=== PATIENT | male | born 1935 | race Caucasian/White ===

== ENCOUNTER 2018-03-26 11:12 | Inpatient (IN) | payer MEDICARE, OTHER ==
[~2018-03-26] VITALS: Ht 177.8 cm; Wt 102.8 kg
[~2018-03-26 11:12] MED LIST: ASPI-1012 PO; ATOR10TA69 PO; CARV12.511 PO; FERR325T22 PO; FINA5TAB41 PO; HYDR-4457 PO; MIRAUD PO; OXYB5TAB10 PO; TAMS0.4C32 PO; VALS1TAB81 PO
[2018-03-26] MEDS ORDERED: ACETAMINOPHEN 325 MG TAB ONE (13:07)
[2018-03-26] MEDS ORDERED: OCTYL 2-CYANOACRYLATE 1 EACH TP ONE (14:39)
[2018-03-26 15:22] LABS: BASOPHILS % (AUTO) 0.5 % (0.0-5.0); EOSINOPHILS % (AUTO) 2.5 % (0.0-8.0); HEMATOCRIT 37.5 % (42-54); LYMPHOCYTES % (AUTO) 11.2 % (21.0-51.0); MEAN CORPUSCULAR HEMOGLOBIN 28.7 pg (27.0-33.0); MEAN CORPUSCULAR HGB CONC 33.4 g/dL (32.0-36.0); MEAN CORPUSCULAR VOLUME 85.7 fL (79-99); MONOCYTES % (AUTO) 8.7 % (3.0-13.0); NEUTROPHILS % (AUTO) 77.1 % (40.0-77.0); PLATELET COUNT (AUTO) 147 K/uL (130-400); RED BLOOD CELL COUNT(AUTO) 4.37 MIL/uL (4.50-6.20); RED CELL DISTRIBUTION WIDTH 14.1 % (11.0-15.5); WHITE BLOOD COUNT (AUTO) 7.5 K/uL (4.8-10.8)
[2018-03-26 15:29] LABS: CREATININE 1.2 mg/dL (0.5-1.5); POTASSIUM 3.9 mmol/L (3.5-5.1)
[2018-03-26 15:34] LABS: ALBUMIN 3.9 g/dL (3.5-5.0); BILIRUBIN,TOTAL 0.8 mg/dL (0.2-1.0); TOTAL PROTEIN, SERUM 7.4 g/dL (6.0-8.3)
[2018-03-26 15:37] LABS: PARTIAL THROMBOPLASTIN TIME 27.5 SEC (26.3-35.5); PROTHROMBIN TIME 10.5 SEC (9.6-11.6)
[2018-03-26] MEDS ORDERED: MORPHINE SULFATE 2 MG/ML 1ML SYG IVP PRN ×3 (17:00→20:11)
[2018-03-26] MEDS ORDERED: MORPHINE SULFATE 5 MG/ML VIAL IV PRN (17:45)
[2018-03-26] MEDS ORDERED: ONDANSETRON HCL MDV 20ML 2 MG/ML VIAL IVP PRN (17:45)
[2018-03-26] MEDS ORDERED: HYDROCODONE/ACETAMINOPHEN 5/325 MG TAB PO PRN (17:45)
[2018-03-26] MEDS ORDERED: ONDANSETRON HCL 4 MG/2 ML VIAL IVP PRN (18:00)
[2018-03-26 19:05] VITALS: BP 172/72
[2018-03-26] MEDS ORDERED: FISH1CAP49 PO (19:25)
[2018-03-26] MEDS ORDERED: LUTE6CAP2 PO (19:25)
[2018-03-26] MEDS: CEFAZOLIN SODIUM 1 GM VIAL IVP SCH ×2 (20:10→21:20)
[2018-03-26] MEDS: INSULIN HUMULIN R 100 UNIT/ML 3ML SQ SCH (21:00)
[2018-03-27] VITALS (7 sets, daily range): BP systolic 111–157; BP diastolic 54–96
[2018-03-27 05:54] LABS: BASOPHILS % (AUTO) 0.5 % (0.0-5.0); HEMATOCRIT 35.7 % (42-54); LYMPHOCYTES % (AUTO) 16.2 % (21.0-51.0); MEAN CORPUSCULAR HEMOGLOBIN 28.9 pg (27.0-33.0); MEAN CORPUSCULAR HGB CONC 34.1 g/dL (32.0-36.0); MEAN CORPUSCULAR VOLUME 84.9 fL (79-99); MONOCYTES % (AUTO) 12.1 % (3.0-13.0); NEUTROPHILS % (AUTO) 66.2 % (40.0-77.0); PLATELET COUNT (AUTO) 146 K/uL (130-400); RED CELL DISTRIBUTION WIDTH 14.1 % (11.0-15.5); WHITE BLOOD COUNT (AUTO) 6.4 K/uL (4.8-10.8)
[2018-03-27 06:05] LABS: CREATININE 1.2 mg/dL (0.5-1.5); POTASSIUM 3.7 mmol/L (3.5-5.1)
[2018-03-27] MEDS: INSULIN HUMULIN R 100 UNIT/ML 3ML SQ SCH ×2 (06:13→21:00)
[2018-03-27] MEDS: PANTOPRAZOLE SODIUM 40 MG TABLET.DR PO SCH (08:38)
[2018-03-27] MEDS: CEFAZOLIN SODIUM 1 GM VIAL IVP SCH (08:38)
[2018-03-27] MEDS: VALSARTAN HCTZ PO SCH (09:34)
[2018-03-27] MEDS: OXYBUTYNIN CHLORIDE 5 MG TABLET PO SCH (21:00)
[2018-03-27] MEDS: CARVEDILOL 12.5 MG TABLET PO SCH (21:00)
[2018-03-27] MEDS ORDERED: LUTEIN 6 MG PO SCH (21:00)
[2018-03-27] MEDS ORDERED: ATORVASTATIN CALCIUM 10 MG TABLET PO SCH (21:00)
[2018-03-28] MEDS: CEFAZOLIN SODIUM 1 GM VIAL IVP SCH ×2 (00:22→10:45)
[2018-03-28 03:10] VITALS: BP 134/49
[2018-03-28] MEDS: INSULIN HUMULIN R 100 UNIT/ML 3ML SQ SCH (06:33)
[2018-03-28 07:43] VITALS: BP 142/70
[2018-03-28] MEDS ORDERED: FINASTERIDE 5 MG TABLET PO SCH (09:00)
[2018-03-28] MEDS: PANTOPRAZOLE SODIUM 40 MG TABLET.DR PO SCH (09:00)
[2018-03-28] MEDS ORDERED: FERROUS SULFATE 325 MG TABLET.DR PO SCH (09:00)
[2018-03-28] MEDS: VALSARTAN HCTZ PO SCH (09:00)
[2018-03-28] MEDS: OXYBUTYNIN CHLORIDE 5 MG TABLET PO SCH (09:00)
[2018-03-28] MEDS: CARVEDILOL 12.5 MG TABLET PO SCH (09:00)
[2018-03-28 12:50] VITALS: BP 122/52
== END 2018-03-28 12:51 | disposition home or self-care (01) | DRG 125 ==
LOC: EDH 11:12 → EDHIP 16:25 → 4AH 18:48
PROVIDERS: ADMIT Surgery Plastic and Reconstructive Surgery; ATTEND Surgery Plastic and Reconstructive Surgery
PROC: 0NS Head and Facial Bones, Reposition (ICD-10-PCS; principal; 2018-03-28)
DX: S02.32XA Fracture of orbital floor, left side, initial encounter for closed fracture (principal); E11.9 Type 2 diabetes mellitus without complications; I10 Essential (primary) hypertension; E78.5 Hyperlipidemia, unspecified; I25.10 Atherosclerotic heart disease of native coronary artery without angina pectoris; J38.4 Edema of larynx; N40.0 Benign prostatic hyperplasia without lower urinary tract symptoms; S05.12XA Contusion of eyeball and orbital tissues, left eye, initial encounter; S02.2XXA Fracture of nasal bones, initial encounter for closed fracture; W01.0XXA Fall on same level from slipping, tripping and stumbling without subsequent striking against object, initial encounter; Z96.653 Presence of artificial knee joint, bilateral; Y93.89 Activity, other specified; Y92.090 Kitchen in other non-institutional residence as the place of occurrence of the external cause; Y99.8 Other external cause status; Z88.8 Allergy status to other drugs, medicaments and biological substances; Z95.1 Presence of aortocoronary bypass graft; Z86.14 Personal history of Methicillin resistant Staphylococcus aureus infection; Z83.3 Family history of diabetes mellitus; Z82.3 Family history of stroke; Z82.49 Family history of ischemic heart disease and other diseases of the circulatory system
CPT/HCPCS: 36415; 70450; 70486; 80048; 80053; 82948; 85025; 85610; 85730; A4218; G0378; J0690

== ENCOUNTER 2020-03-28 14:27 | Observation (INO) | payer OTHER ==
[~2020-03-28] VITALS: Ht 172.7 cm; Wt 84.8 kg
[~2020-03-28 14:27] MED LIST changes: -ASPI-1012 PO; +FISH1CAP49 PO; -HYDR-4457 PO; +LUTE6CAP2 PO; -MIRAUD PO; -OXYB5TAB10 PO; +OXYB5TAB15 PO
[2020-03-28] MEDS ORDERED: ACETAMINOPHEN EXTRA STRENGTH 500 MG TABLET ONE (15:39)
[2020-03-28] MEDS ORDERED: TETANUS/DIPHTHERIA TOXOID [ADULT] 0.5 ML VIAL IM ONE (15:40)
[2020-03-28 16:12] LABS: BASOPHILS % (AUTO) 0.5 % (0.0-5.0); EOSINOPHILS % (AUTO) 4.9 % (0.0-8.0); HEMATOCRIT 37.8 % (42-54); LYMPHOCYTES % (AUTO) 14.1 % (21.0-51.0); MEAN CORPUSCULAR HEMOGLOBIN 27.5 pg (27.0-33.0); MEAN CORPUSCULAR HGB CONC 32.3 g/dL (32.0-36.0); MEAN CORPUSCULAR VOLUME 85.3 fL (79-99); MONOCYTES % (AUTO) 9.1 % (3.0-13.0); NEUTROPHILS % (AUTO) 71.2 % (40.0-77.0); PLATELET COUNT (AUTO) 153 K/uL (130-400); RED BLOOD CELL COUNT(AUTO) 4.43 MIL/uL (4.50-6.20); RED CELL DISTRIBUTION WIDTH 13.2 % (11.0-15.5); WHITE BLOOD COUNT (AUTO) 6.4 K/uL (4.8-10.8)
[2020-03-28 16:23] LABS: INR 1.02 (0.85-1.15); PROTHROMBIN TIME 11.1 SEC (9.6-11.6)
[2020-03-28 16:24] LABS: PARTIAL THROMBOPLASTIN TIME 26.8 SEC (26.3-35.5)
[2020-03-28 16:26] LABS: POTASSIUM 3.9 mmol/L (3.5-5.1)
[2020-03-28 16:31] LABS: ALBUMIN 3.5 g/dL (3.5-5.0); BILIRUBIN,TOTAL 0.7 mg/dL (0.2-1.0); TOTAL PROTEIN, SERUM 7.8 g/dL (6.0-8.3)
[2020-03-28] MEDS ORDERED: HYDRALAZINE HCL 20 MG/ML VIAL IV PRN (18:30)
[2020-03-28] MEDS ORDERED: GLUCAGON 1MG KIT 1 MG ML IM PRN (18:30)
[2020-03-28] MEDS ORDERED: ONDANSETRON HCL 4 MG/2 ML VIAL IVP PRN (18:30)
[2020-03-28] MEDS ORDERED: ACETAMINOPHEN 325 MG TAB PO PRN (18:30)
[2020-03-28] MEDS ORDERED: DEXTROSE 50%-WATER 50 ML DISP.SYRIN IV PRN (18:30)
[2020-03-28] MEDS ORDERED: TEMAZEPAM 7.5 MG CAPSULE PO PRN (18:30)
[2020-03-28 19:01] LABS: APPEARANCE,URINE Clear (CLEAR); BILIRUBIN,URINE Negative (NEGATIVE); COLOR,URINE Yellow (YELLOW); GLUCOSE, URINE (UA) Negative (NEGATIVE); KETONES,URINE Negative (NEGATIVE); LEUKOCYTE ESTERASE ,URINE Moderate (NEGATIVE); NITRATE,URINE Negative (NEGATIVE); OCCULT BLOOD,URINE Negative (NEGATIVE); PH,URINE 5.5 (5.0-8.0); PROTEIN,URINE Negative (NEGATIVE)
[2020-03-28 19:15] LABS: BACTERIA,URINE Few /HPF (None Seen); RBC,URINE 0-1 /HPF (0-1)
[2020-03-28 19:16] LABS: SQUAMOUS EPITHELIAL CELL,UR Few /HPF (0-2)
[2020-03-28] MEDS: INSULIN R PO SS1/2 SQ SCH (21:00)
[2020-03-28] MEDS ORDERED: LISINOPRIL 5 MG TABLET PO SCH (21:00)
[2020-03-28] MEDS ORDERED: LISINOPRIL 5 MG TABLET ONE (21:11)
[2020-03-28 21:38] LABS: AMPHET/METH SCREEN,URINE NEGATIVE (NEGATIVE); BARBITURATE SCREEN, URINE NEGATIVE (NEGATIVE); BENZODIAZEPINES SCREEN,URINE NEGATIVE (NEGATIVE); CANNABINOID SCREEN,URINE NEGATIVE (NEGATIVE); COCAINE SCREEN,URINE NEGATIVE (NEGATIVE); OPIATE SCREEN,URINE NEGATIVE (NEGATIVE); PHENCYCLIDINE SCREEN,URINE NEGATIVE (NEGATIVE)
[2020-03-28] MEDS ORDERED: DiphenhydrAMINE HCL 50 MG/ML VIAL IVP PRN (22:00)
[2020-03-28 22:45] VITALS: BP 147/74
[2020-03-29] VITALS (7 sets, daily range): BP systolic 100–141; BP diastolic 39–77
[2020-03-29 04:12] LABS: BASOPHILS % (AUTO) 0.6 % (0.0-5.0); EOSINOPHILS % (AUTO) 5.4 % (0.0-8.0); HEMATOCRIT 35.5 % (42-54); LYMPHOCYTES % (AUTO) 19.6 % (21.0-51.0); MEAN CORPUSCULAR HEMOGLOBIN 27.5 pg (27.0-33.0); MEAN CORPUSCULAR HGB CONC 32.4 g/dL (32.0-36.0); MEAN CORPUSCULAR VOLUME 84.9 fL (79-99); MONOCYTES % (AUTO) 11.9 % (3.0-13.0); NEUTROPHILS % (AUTO) 62.2 % (40.0-77.0); PLATELET COUNT (AUTO) 151 K/uL (130-400); RED BLOOD CELL COUNT(AUTO) 4.18 MIL/uL (4.50-6.20); RED CELL DISTRIBUTION WIDTH 13.2 % (11.0-15.5); WHITE BLOOD COUNT (AUTO) 6.8 K/uL (4.8-10.8)
[2020-03-29 04:15] LABS: HEMOGLOBIN A1C 6.2 % (4.0-6.0)
[2020-03-29 04:25] LABS: CREATININE 1.1 mg/dL (0.5-1.5); POTASSIUM 3.4 mmol/L (3.5-5.1)
[2020-03-29] MEDS ORDERED: POTASSIUM CHLORIDE 10% ELIXIR 20 MEQ/15 ML UDCUP PO PRN (05:45)
[2020-03-29] MEDS ORDERED: LIDOCAINE HCL-MPF 1% 2ML VIAL IV PRN (05:45)
[2020-03-29] MEDS ORDERED: POTASSIUM CHLORIDE 20MEQ/100ML 100 ML IV PRN (05:45)
[2020-03-29] MEDS: CEFTRIAXONE SODIUM 1 GM IVP SCH (06:30)
[2020-03-29] MEDS: INSULIN R PO SS1/2 SQ SCH ×4 (06:33→21:00)
[2020-03-29] MEDS: OXYBUTYNIN CHLORIDE 5 MG TABLET PO SCH ×2 (08:45→20:33)
[2020-03-29] MEDS: POTASSIUM CHLORIDE 20 MEQ ERTAB PO PRN (08:45)
[2020-03-29] MEDS: AMLODIPINE BESYLATE 5 MG TAB PO SCH (08:46)
[2020-03-29] MEDS: FERROUS SULFATE 325 MG TABLET.DR PO SCH (08:46)
[2020-03-29] MEDS: FINASTERIDE 5 MG TABLET PO SCH (08:46)
[2020-03-29] MEDS ORDERED: TAMSULOSIN HCL 0.4 MG CAP.ER.24H PO SCH (21:00)
[2020-03-29] MEDS ORDERED: ATORVASTATIN CALCIUM 10 MG TABLET PO SCH (21:00)
[2020-03-30 03:25] VITALS: BP 110/70
[2020-03-30] MEDS: CEFTRIAXONE SODIUM 1 GM IVP SCH (04:31)
[2020-03-30 05:30] LABS: HEMATOCRIT 34.7 % (42-54); MEAN CORPUSCULAR HEMOGLOBIN 27.7 pg (27.0-33.0); MEAN CORPUSCULAR HGB CONC 32.9 g/dL (32.0-36.0); MEAN CORPUSCULAR VOLUME 84.4 fL (79-99); RED BLOOD CELL COUNT(AUTO) 4.11 MIL/uL (4.50-6.20); RED CELL DISTRIBUTION WIDTH 13.2 % (11.0-15.5); WHITE BLOOD COUNT (AUTO) 6.5 K/uL (4.8-10.8)
[2020-03-30 05:54] LABS: CREATININE 1.3 mg/dL (0.5-1.5); MAGNESIUM 1.7 mg/dL (1.80-2.40); POTASSIUM 3.5 mmol/L (3.5-5.1)
[2020-03-30] MEDS: INSULIN R PO SS1/2 SQ SCH ×3 (06:01→16:30)
[2020-03-30] MEDS: POTASSIUM CHLORIDE 20 MEQ ERTAB PO PRN ×2 (06:05→08:37)
[2020-03-30] MEDS ORDERED: MAGNESIUM 2GM PREMIX 50ML 50 ML IV ONE (06:34)
[2020-03-30] MEDS ORDERED: MAGNESIUM 2GM PREMIX 50ML 50 ML IV SCH (06:45)
[2020-03-30 08:27] VITALS: BP 118/86
[2020-03-30] MEDS: FERROUS SULFATE 325 MG TABLET.DR PO SCH (08:36)
[2020-03-30] MEDS: AMLODIPINE BESYLATE 5 MG TAB PO SCH (08:36)
[2020-03-30] MEDS: OXYBUTYNIN CHLORIDE 5 MG TABLET PO SCH (08:36)
[2020-03-30] MEDS: FINASTERIDE 5 MG TABLET PO SCH (08:36)
[2020-03-30 15:11] VITALS: BP 123/49
[2020-03-30] MEDS ORDERED: AMLO5TAB4 PO (15:17)
[2020-03-30] MEDS ORDERED: CEPH500B PO (15:17)
[2020-03-30 17:32] VITALS: BP 86/63
== END 2020-03-30 18:08 | disposition home or self-care (01) ==
LOC: EDH 14:27 → EDHIP 17:48 → 4CH 21:34
PROVIDERS: ADMIT Internal Medicine; ATTEND Internal Medicine
DX: I48.91 Unspecified atrial fibrillation (principal); Z20.822 Contact with and (suspected) exposure to COVID-19; R00.1 Bradycardia, unspecified; S00.03XA Contusion of scalp, initial encounter; R29.6 Repeated falls; N39.0 Urinary tract infection, site not specified; I25.10 Atherosclerotic heart disease of native coronary artery without angina pectoris; I10 Essential (primary) hypertension; E78.5 Hyperlipidemia, unspecified; N40.0 Benign prostatic hyperplasia without lower urinary tract symptoms; E11.9 Type 2 diabetes mellitus without complications; I44.30 Unspecified atrioventricular block; J44.9 Chronic obstructive pulmonary disease, unspecified; Z87.891 Personal history of nicotine dependence; Z23 Encounter for immunization; Z95.1 Presence of aortocoronary bypass graft; Z96.653 Presence of artificial knee joint, bilateral; Z79.899 Other long term (current) drug therapy; Z88.1 Allergy status to other antibiotic agents; Z88.2 Allergy status to sulfonamides; Z88.8 Allergy status to other drugs, medicaments and biological substances; W01.0XXA Fall on same level from slipping, tripping and stumbling without subsequent striking against object, initial encounter; Y92.009 Unspecified place in unspecified non-institutional (private) residence as the place of occurrence of the external cause; Y93.89 Activity, other specified
CPT/HCPCS: 36415 ×3; 70450; 70486; 71045; 72125; 73562; 80048 ×2; 80053; 80061; 80305; 81001; 82550; 82948 ×7; 83036; 83735; 84484 ×2; 85025 ×2; 85027; 85610; 85730; 87077; 87088; 87186; 87426; 90471; 90714; 93005 ×2; 93306; 93356; 96365; 96366; 96375; 96376; 97039 ×3; 97161; 99291; G0378 ×47; G8978; G8979; G8980; G8981; G8982; G8983; J0696 ×2; J1200; J3475; U0003